=== PATIENT | male | born 1990 | race Caucasian/White ===

== ENCOUNTER 2016-12-24 09:26 | Emergency (ER) | payer OTHER ==
[~2016-12-24 09:26] MED LIST: AMOXICILLIN; AMOXICILLIN500 M1 PO; FLONASE16 GM; GLUCOMETER DE1 STRIP IN; HUMALOG INSULIN; HUMALOG100 U/M2 SQ; LANTUS INSULIN SQ; LANTUS100 U/M1 SUBQ; LANTUS100 U/ML SUBQ; NAPROSYN500 MG PO; NO MEDICATIONS; SUDAFED; TESSALON PERLE100 M1; ZOFRAN ODT4 MG/UDTAB PO; ZOFRAN PO
[2016-12-24] MEDS ORDERED: TRESIBA FL100 UNIT/1 (09:38)
[2016-12-24 10:44] LABS: BASOPHIL% 0.7 % (0-2.5); EOSINOPHIL# 0.1 X10e3 (0-0.7); EOSINOPHIL% 0.9 % (0.0-7.0); HEMATOCRIT 43.9 % (38.0-50.0); HEMOGLOBIN 15.2 gm/dL (13.0-16.0); LYMPHOCYTE# 1.4 X10e3 (1.0-3.5); MEAN CELL VOLUME 88.8 FL (83-96); MEAN CORPUSCULAR HEMOGLOBIN 30.7 PG (28-34); MEAN CORPUSCULAR HGB CONC 34.6 g/dL (30-36); MEAN PLATELET VOLUME 8.5 FL (6.5-11.5); MONOCYTE# 0.6 X10e3 (0-1.0); MONOCYTE% 9.9 % (3.0-12.0); NEUTROPHIL# 3.9 X10e3 (1.5-7.1); NEUTROPHIL% 65.5 % (40-75); PLATELET COUNT 255 X10e3 (140-420); RED BLOOD COUNT 4.94 X10e (3.90-5.60); RED CELL DISTRIBUTION WIDTH 12.6 % (11.0-15.5); WHITE BLOOD COUNT 5.9 X10e3 (4.0-10.5)
[2016-12-24 10:48] LABS: DIFF IND NO
[2016-12-24 11:05] LABS: ALBUMIN SERUM 3.9 g/dL (3.5-5.0); ALKALINE PHOSPHATASE 92 U/L (32-92); ALT (SGPT) 14 U/L (10-40); AST (SGOT) 14 U/L (10-42); BILIRUBIN,TOTAL 0.1 mg/dL (0.2-2.0); BLOOD UREA NITROGEN 12 mg/dL (9-23); CALCIUM SERUM 8.5 mg/dL (8.4-10.2); CARBON DIOXIDE 27 mmol/L (22-31); CHLORIDE 101 mmol/L (100-111); CREATININE SERUM 0.8 mg/dL (0.6-1.4); GLOM FILT RATE Estimated 122.5 mL/min (>60); GLUCOSE FASTING 358 mg/dL (70-110); SODIUM 134 mmol/L (135-145)
[2016-12-24 11:18] LABS: BILIRUBIN, DIRECT <0.1 mg/dL (0.0-0.2)
[2016-12-24 11:41] LABS: URINE SOURCE CLEAN CATCH
[2016-12-24 11:43] LABS: URINE APPEARANCE CLEAR; URINE BILIRUBIN NEG (NEG); URINE BLOOD NEG (NEG); URINE COLOR YELLOW; URINE GLUCOSE 300 MG/DL (NORM); URINE KETONE TRACE (NEG); URINE LEUKOCYTE ESTERASE NEG (NEG); URINE NITRATE NEG (NEG); URINE PROTEIN NEG (NEG); URINE UROBILINOGEN 0.2 MG/DL (NORM)
[2016-12-24 11:49] LABS: MICRO INDICATED? NO
== END 2016-12-24 12:43 | disposition home or self-care (01) ==
LOC: SED 09:26
PROVIDERS: Emergency Medicine
DX: E10.65 Type 1 diabetes mellitus with hyperglycemia (principal)
CPT/HCPCS: 36415; 80048; 80076; 81003; 82010; 82947; 85025; 96374; 99284

== ENCOUNTER 2017-01-22 08:57 | Emergency (ER) | payer OTHER ==
--- NOTE | ~2017-01-22 | CT4 ---
[facility] A Service of [facility] RADIOLOGY TEXT RESULTS PATIENT: SRI FOX JR LOCATION: SED : 89 UNIT #: [id number] AGE: [address]: Corona Lewis MD SEX: M ORDER DR: [id number] [place] [address] [id number] E MR#: [id number] Acc #: [id number] NAME: SRI FOX JR : 1990 SEX: M STUDY DATE/TIME: 01/22/2017 10:14 UNIT: SED ROOM: STUDY DESCRIPTION: CT Abd and Pelv Wo Cont Attending Physician: Corona Lewis M.D. Ordering Physician: Corona Lewis M.D. Primary Care Physician: Primary Care Physician No MEDICAL IMAGING REPORT This report is preliminary unless electronic signature is present. EXAM CT abdomen and pelvis INDICATION Vomiting. Hyperglycemia. Nausea. TECHNIQUE CT of the abdomen and pelvis without contrast. Coronal and sagittal reconstructions were obtained. This CT exam was performed with one or more of the following radiation dose reduction techniques: automatic exposure control, adjustment of mA and/or kV according to patient size, and iterative reconstruction. COMPARISON CT abdomen and pelvis, 12/14/2012 FINDINGS ABDOMEN: No urinary calculi. No hydronephrosis. Noncontrast evaluation of the remaining solid abdominal organs are within normal limits. The gallbladder is not distended. The bowel is not dilated. The appendix is normal. There is a small umbilical hernia containing omental fat only. PELVIS: There is calcifications of the vas deferens. This is associated with diabetes. No enlarged pelvic or inguinal lymph nodes. Bladder is unremarkable. No acute osseous abnormalities. IMPRESSION 1. No acute findings in the abdomen or pelvis to account for the [facility] A Service [facility] RADIOLOGY TEXT RESULTS PATIENT: SRI FOX JR LOCATION: SED : 89 UNIT #: [id number] AGE: [address]: Corona Lewis MD SEX: M ORDER DR: patient's symptoms. 2. No urinary calculi. Normal appendix. Dictated by... Gopi Chavarria M.D. THIS IS AN ELECTRONICALLY VERIFIED REPORT Gopi Chavarria M.D. at 01/22/2017 2:20 PM FAIZAN/raven TD: 01/22/2017 12:43 JOB #: [id number] MEDICAL IMAGING REPORT Page 1 of 1
[~2017-01-22 08:57] MED LIST changes: +TRESIBA FL100 UNIT/1
[2017-01-22 10:05] LABS: BASOPHIL% 0.8 % (0-2.5); EOSINOPHIL# 0.2 X10e3 (0-0.7); EOSINOPHIL% 2.9 % (0.0-7.0); HEMATOCRIT 47.9 % (38.0-50.0); HEMOGLOBIN 16.4 gm/dL (13.0-16.0); LYMPHOCYTE# 2.3 X10e3 (1.0-3.5); LYMPHOCYTE% 42.3 % (17.0-45.0); MEAN CELL VOLUME 88.6 FL (83-96); MEAN CORPUSCULAR HEMOGLOBIN 30.2 PG (28-34); MEAN CORPUSCULAR HGB CONC 34.1 g/dL (30-36); MEAN PLATELET VOLUME 8.2 FL (6.5-11.5); MONOCYTE# 0.3 X10e3 (0-1.0); MONOCYTE% 6.5 % (3.0-12.0); NEUTROPHIL# 2.5 X10e3 (1.5-7.1); NEUTROPHIL% 47.5 % (40-75); PLATELET COUNT 311 X10e3 (140-420); RED BLOOD COUNT 5.41 X10e (3.90-5.60); RED CELL DISTRIBUTION WIDTH 12.6 % (11.0-15.5); WHITE BLOOD COUNT 5.4 X10e3 (4.0-10.5)
[2017-01-22 10:09] LABS: DIFF IND NO
[2017-01-22 10:23] LABS: BILIRUBIN, DIRECT 0.1 mg/dL (0.0-0.2); BILIRUBIN,INDIRECT 0.2 mg/dL (0.0-0.9); BILIRUBIN,TOTAL 0.3 mg/dL (0.2-2.0); CALCIUM SERUM 9.1 mg/dL (8.4-10.2); CREATININE SERUM 0.6 mg/dL (0.6-1.4); GLOM FILT RATE Estimated 137.8 mL/min (>60); POTASSIUM 4.1 mmol/L (3.5-5.1); PROTEIN TOTAL SERUM 7.3 g/dL (6.0-8.3)
[2017-01-22 11:58] LABS: URINE SOURCE CLEAN CATCH
[2017-01-22 12:01] LABS: URINE APPEARANCE CLEAR; URINE BILIRUBIN NEG (NEG); URINE BLOOD NEG (NEG); URINE COLOR YELLOW; URINE GLUCOSE 300 MG/DL (NORM); URINE KETONE NEG (NEG); URINE LEUKOCYTE ESTERASE NEG (NEG); URINE NITRATE NEG (NEG); URINE SPECIFIC GRAVITY 1.015 (1.003-1.035); URINE UROBILINOGEN 0.2 MG/DL (NORM)
[2017-01-22 12:03] LABS: MICRO INDICATED? NO; URINE PROTEIN NEG (NEG)
== END 2017-01-22 12:01 | disposition home or self-care (01) ==
LOC: SED 08:57
PROVIDERS: Emergency Medicine
DX: R10.31 Right lower quadrant pain (principal); R11.2 Nausea with vomiting, unspecified; E10.9 Type 1 diabetes mellitus without complications
CPT/HCPCS: 36415; 74176; 80048; 80076; 81003; 82947; 83690; 85025; 96361; 96374; 99284; J2405

== ENCOUNTER 2017-02-11 10:24 | Emergency (ER) | payer OTHER ==
[2017-02-11 11:06] LABS: URINE SOURCE CLEAN CATCH
[2017-02-11 11:09] LABS: URINE APPEARANCE CLEAR; URINE BILIRUBIN NEG (NEG); URINE BLOOD NEG (NEG); URINE COLOR YELLOW; URINE GLUCOSE 300 MG/DL (NORM); URINE LEUKOCYTE ESTERASE NEG (NEG); URINE NITRATE NEG (NEG); URINE PH 5.5 (5-8); URINE PROTEIN NEG (NEG); URINE UROBILINOGEN 0.2 MG/DL (NORM)
[2017-02-11 11:18] LABS: MICRO INDICATED? NO; URINE KETONE 2+ (NEG)
[2017-02-11 12:00] LABS: BUN/CREATININE RATIO 17.14; CALCIUM SERUM 8.2 mg/dL (8.4-10.2); CREATININE SERUM 0.7 mg/dL (0.6-1.4); GLOM FILT RATE Estimated 129.4 mL/min (>60); POTASSIUM 4.4 mmol/L (3.5-5.1)
== END 2017-02-11 13:47 | disposition home or self-care (01) ==
LOC: SED 10:24
PROVIDERS: Emergency Medicine
DX: E86.0 Dehydration (principal); R73.9 Hyperglycemia, unspecified; R11.0 Nausea
CPT/HCPCS: 36415; 80048; 81003; 82947; 96361; 96374; 99283

== ENCOUNTER 2017-04-05 19:03 | Emergency (ER) | payer OTHER ==
[~2017-04-05] VITALS: Ht 177.8 cm; Wt 63.5 kg
[2017-04-05 20:14] LABS: BUN/CREATININE RATIO 12.5; CALCIUM SERUM 9.1 mg/dL (8.4-10.2); CREATININE SERUM 0.8 mg/dL (0.6-1.4); GLOM FILT RATE Estimated 122.5 mL/min (>60); POTASSIUM 4.1 mmol/L (3.5-5.1)
[2017-04-05 20:25] LABS: URINE SOURCE CLEAN CATCH
[2017-04-05 20:32] LABS: URINE APPEARANCE CLEAR; URINE BILIRUBIN NEG (NEG); URINE BLOOD NEG (NEG); URINE COLOR YELLOW; URINE GLUCOSE 300 MG/DL (NORM); URINE KETONE 1+ (NEG); URINE LEUKOCYTE ESTERASE NEG (NEG); URINE NITRATE NEG (NEG); URINE PROTEIN NEG (NEG)
[2017-04-05 20:33] LABS: MICRO INDICATED? NO
== END 2017-04-05 23:39 | disposition home or self-care (01) ==
LOC: SED 19:03
PROVIDERS: Emergency Medicine
DX: E10.65 Type 1 diabetes mellitus with hyperglycemia (principal); Z79.4 Long term (current) use of insulin
CPT/HCPCS: 36415; 80048; 81003; 82947; 96361; 96374; 99285

== ENCOUNTER 2017-04-12 00:27 | Emergency (ER) | payer OTHER ==
[~2017-04-12] VITALS: Ht 177.8 cm; Wt 65.8 kg
--- NOTE | ~2017-04-12 | EKG ---
PATIENT: SRI FOX UNIT #: [id number] Ventricular Rate: 69 BPM Atrial Rate: 69 BPM P-R Interval: 156 ms QRS Duration: 90 ms Q-T Interval: 398 ms QTC Calculation(Bezet): 426 ms P [place]: 29 degrees Calculated R [place]: 28 degrees Calculated T [place]: 30 degrees Diagnosis Line: Normal sinus rhythm Diagnosis Line: Low voltage QRS Diagnosis Line: Borderline ECG Diagnosis Line: When compared with ECG of 11-APR-2016 00:48, Diagnosis Line: No significant change was found Diagnosis Line: Confirmed by ANGELINA JONES MD ([id number]) on 04/12/2017 Diagnosis Line: 5:48:53 PM INTERPRETING MD: ROBERT GONZALEZ
--- NOTE | ~2017-04-12 | CR72 ---
[facility] A Service of [facility] RADIOLOGY TEXT RESULTS PATIENT: SRI FOX JR LOCATION: SED : 89 UNIT #: [id number] AGE: [address]: Samir Freitas MD SEX: M ORDER DR: [id number] [address] [address] [id number] E MR#: [id number] Acc #: [id number] NAME: SRI FOX JR : 1990 SEX: M STUDY DATE/TIME: 04/12/2017 0:58 UNIT: SED ROOM: STUDY DESCRIPTION: CR Chest Single View Portable Attending Physician: Samir Freitas M.D. Ordering Physician: Samir Freitas M.D. Primary Care Physician: Primary Care Physician No MEDICAL IMAGING REPORT This report is preliminary unless electronic signature is present. EXAM Portable chest HISTORY Shortness of air today. FINDINGS A single AP portable view of the chest shows both lungs to be clear. The heart is normal in size. The mediastinal contour is normal. No significant bone abnormalities are seen. IMPRESSION Normal portable chest. Dictated by... Jerome Augustin M.D. THIS IS AN ELECTRONICALLY VERIFIED REPORT Jerome Augustin M.D. at 04/12/2017 3:52 PM ANTWAN/kaylin TD: 04/12/2017 06:29 JOB #: [id number] MEDICAL IMAGING REPORT Page 1 of 1
--- NOTE | ~2017-04-12 | EKG ---
PATIENT: SRI FOX UNIT #: [id number] Ventricular Rate: 69 BPM Atrial Rate: 69 BPM P-R Interval: 156 ms QRS Duration: 90 ms Q-T Interval: 398 ms QTC Calculation(Bezet): 426 ms P [place]: 29 degrees Calculated R [place]: 28 degrees Calculated T [place]: 30 degrees Diagnosis Line: Normal sinus rhythm Diagnosis Line: Low voltage QRS Diagnosis Line: Otherwise normal ECG Diagnosis Line: When compared with ECG of 11-APR-2016 00:48, Diagnosis Line: No significant change was found Diagnosis Line: Reconfirmed by ANGELINA JONES MD ([id number]) on 04/12/2017 Diagnosis Line: 5:49:04 PM INTERPRETING MD: ROBERT GONZALEZ
[2017-04-12 01:26] LABS: URINE APPEARANCE CLEAR; URINE BILIRUBIN NEG (NEG); URINE BLOOD NEG (NEG); URINE COLOR YELLOW; URINE GLUCOSE 300 MG/DL (NORM); URINE KETONE 1+ (NEG); URINE LEUKOCYTE ESTERASE NEG (NEG); URINE NITRATE NEG (NEG); URINE PROTEIN NEG (NEG); URINE SOURCE CLEAN CATCH; URINE SPECIFIC GRAVITY <=1.005 (1.003-1.035); URINE UROBILINOGEN 0.2 MG/DL (NORM)
[2017-04-12 01:27] LABS: BASOPHIL% 0.6 % (0-2.5); EOSINOPHIL# 0.1 X10e3 (0-0.7); EOSINOPHIL% 1.1 % (0.0-7.0); HEMATOCRIT 42.6 % (38.0-50.0); HEMOGLOBIN 14.4 gm/dL (13.0-16.0); LYMPHOCYTE# 2.1 X10e3 (1.0-3.5); LYMPHOCYTE% 35.9 % (17.0-45.0); MEAN CELL VOLUME 91.3 FL (83-96); MEAN CORPUSCULAR HEMOGLOBIN 30.9 PG (28-34); MEAN CORPUSCULAR HGB CONC 33.9 g/dL (30-36); MEAN PLATELET VOLUME 9.2 FL (6.5-11.5); MONOCYTE# 0.4 X10e3 (0-1.0); NEUTROPHIL# 3.3 X10e3 (1.5-7.1); NEUTROPHIL% 56.4 % (40-75); PLATELET COUNT 245 X10e3 (140-420); RED BLOOD COUNT 4.67 X10e (3.90-5.60); WHITE BLOOD COUNT 5.9 X10e3 (4.0-10.5)
[2017-04-12 01:30] LABS: POC - CKMB 1.1 ng/mL (0.0-7.9); POC - MYOGLOBIN 26.9 ng/mL (0.0-169.0); POC - TROPONIN <0.05 ng/mL (<=0.05)
[2017-04-12 01:33] LABS: DIFF IND NO
[2017-04-12 01:34] LABS: MICRO INDICATED? NO
[2017-04-12 01:59] LABS: ALBUMIN SERUM 3.7 g/dL (3.5-5.0); BILIRUBIN,TOTAL 0.8 mg/dL (0.2-2.0); BUN/CREATININE RATIO 22.5; CALCIUM SERUM 8.6 mg/dL (8.4-10.2); CREATININE SERUM 0.8 mg/dL (0.6-1.4); GLOM FILT RATE Estimated 121.6 mL/min (>60); POTASSIUM 4.1 mmol/L (3.5-5.1); PROTEIN TOTAL SERUM 6.6 g/dL (6.0-8.3)
== END 2017-04-12 04:41 | disposition home or self-care (01) ==
LOC: SED 00:27
DX: E11.65 Type 2 diabetes mellitus with hyperglycemia (principal); Z79.4 Long term (current) use of insulin
CPT/HCPCS: 36415; 71010; 80053; 81003; 82553; 82947; 83874; 84484; 85025; 93005; 96361; 96374; 96375; 96376; 99284; J2405

== ENCOUNTER 2017-04-22 19:52 | Emergency (ER) | payer OTHER ==
[~2017-04-22] VITALS: Ht 177.8 cm; Wt 65.8 kg
[2017-04-22 20:54] LABS: BASOPHIL% 0.7 % (0-2.5); EOSINOPHIL# 0.1 X10e3 (0-0.7); EOSINOPHIL% 1.3 % (0.0-7.0); HEMATOCRIT 44.9 % (38.0-50.0); HEMOGLOBIN 15.2 gm/dL (13.0-16.0); LYMPHOCYTE# 1.9 X10e3 (1.0-3.5); LYMPHOCYTE% 32.2 % (17.0-45.0); MEAN CELL VOLUME 90.5 FL (83-96); MEAN CORPUSCULAR HEMOGLOBIN 30.7 PG (28-34); MEAN CORPUSCULAR HGB CONC 33.9 g/dL (30-36); MEAN PLATELET VOLUME 8.7 FL (6.5-11.5); MONOCYTE# 0.3 X10e3 (0-1.0); MONOCYTE% 5.1 % (3.0-12.0); NEUTROPHIL# 3.6 X10e3 (1.5-7.1); NEUTROPHIL% 60.7 % (40-75); PLATELET COUNT 248 X10e3 (140-420); RED BLOOD COUNT 4.96 X10e (3.90-5.60); WHITE BLOOD COUNT 5.9 X10e3 (4.0-10.5)
[2017-04-22 20:55] LABS: DIFF IND NO
[2017-04-22 21:05] LABS: URINE APPEARANCE CLEAR; URINE BILIRUBIN NEG (NEG); URINE BLOOD NEG (NEG); URINE COLOR YELLOW; URINE GLUCOSE 300 MG/DL (NORM); URINE KETONE 1+ (NEG); URINE LEUKOCYTE ESTERASE NEG (NEG); URINE NITRATE NEG (NEG); URINE PH 6.5 (5-8); URINE PROTEIN NEG (NEG); URINE SPECIFIC GRAVITY <=1.005 (1.003-1.035); URINE UROBILINOGEN 0.2 MG/DL (NORM)
[2017-04-22 21:06] LABS: MICRO INDICATED? NO; URINE SOURCE CLEAN CATCH
[2017-04-22 21:14] LABS: ALBUMIN SERUM 3.9 g/dL (3.5-5.0); BILIRUBIN, DIRECT 0.1 mg/dL (0.0-0.2); BILIRUBIN,INDIRECT 0.6 mg/dL (0.0-0.9); BILIRUBIN,TOTAL 0.7 mg/dL (0.2-2.0); CALCIUM SERUM 8.5 mg/dL (8.4-10.2); CREATININE SERUM 0.7 mg/dL (0.6-1.4); GLOM FILT RATE Estimated 128.5 mL/min (>60); POTASSIUM 4.3 mmol/L (3.5-5.1); PROTEIN TOTAL SERUM 6.7 g/dL (6.0-8.3)
== END 2017-04-22 22:27 | disposition home or self-care (01) ==
LOC: SED 19:52
PROVIDERS: Student in an Organized Health Care Education/Training Program
DX: Z76.0 Encounter for issue of repeat prescription (principal); E11.65 Type 2 diabetes mellitus with hyperglycemia; Z79.4 Long term (current) use of insulin; Z79.899 Other long term (current) drug therapy
CPT/HCPCS: 36415; 80048; 80076; 81003; 82947; 85025; 96361; 96374; 96375; 99285; J2405